=== PATIENT | male | born 1980 | race Caucasian/White ===

== ENCOUNTER 2025-01-06 07:50 | Emergency (ER) | payer OTHER ==
[~2025-01-06] VITALS: Ht 177.8 cm; Wt 97.6 kg
--- OUTSIDE RECORDS SUMMARY | 2025-01-06 07:57 | XMS ---
PreManage Notification: IAN SWENSON Security Application Integration Specialist Events No recent Security Events currently on file CRITERIA MET - [facility] [place] - 2 Visits in 30 Days CARE PROVIDERS MORRO KANG Physician Technology Analyst Current PHONE: [phone] Vince has no Care Guidelines for this patient. Jim[place] VISIT COUNT (12 MO.) 2 [facility] TOTAL 2 NOTE: Visits indicate total known visits. ED/UCC VISIT TRACKING (12 MO.) 01/06/2025 07:51 [facility] TYPE: Emergency COMPLAINT: - FOREIGN OBJECT 01/05/2025 16:44 [facility] TYPE: Emergency COMPLAINT: - MOUTH PAIN/INJURY INPATIENT VISIT TRACKING (12 MO.) No inpatient visits to display in this time frame [email or web address]
[2025-01-06] MEDS ORDERED: DIPHTH,PERTUSS(ACELL),TET VAC 0.5 ML SYRINGE IM ONE (08:45)
[2025-01-06 09:30] VITALS: BP 145/93
== END 2025-01-06 09:15 | disposition home or self-care (01) ==
LOC: ED 07:50
DX: S01.441A Puncture wound with foreign body of right cheek and temporomandibular area, initial encounter (principal); Z23 Encounter for immunization; W45.8XXA Other foreign body or object entering through skin, initial encounter
CPT/HCPCS: 90471; 90715; 99283-25